=== PATIENT | male | born 1995 | race Two or more races ===

== ENCOUNTER 2018-06-12 03:41 | Emergency (ER) | payer SELFPAY ==
[~2018-06-12] VITALS: Ht 157.5 cm; Wt 62.6 kg
[2018-06-12 03:48] VITALS: Ht 157.5 cm; Wt 62.6 kg
[2018-06-12 04:08] VITALS: BP 131/71
== END 2018-06-12 04:08 | disposition left against medical advice (07) ==
LOC: ED 03:41
DX: Z53.21 Procedure and treatment not carried out due to patient leaving prior to being seen by health care provider (principal)